=== PATIENT | female | born 2000 | race Caucasian/White ===

== ENCOUNTER 2021-08-09 10:59 | Emergency (ER) | payer OTHER, SELFPAY ==
--- NOTE | ~2021-08-09 | XR_ITS ---
EXAMINATION: XR chest 2V DATE: 08/09/2021 11:47 INDICATION: Shortness of breath and right-sided chest pain TECHNIQUE: PA and lateral views of the chest were obtained. COMPARISON: None FINDINGS: The lungs are clear with no focal airspace opacities, pulmonary edema, pleural effusion or pneumothor ax. The cardiomediastinal silhouette is normal. Visualized bones and soft tissues are unremarkable. IMPRESSION: 1. Normal chest radiograph. Reviewed, dictated and finalized at location A. IMPRESSION: 1. Normal chest radiograph.
[2021-08-09 11:10] VITALS: BP 116/64; PULSE 88; RESP 16; TEMP 37.2; O2SAT 100
--- NOTE | 2021-08-09 11:50 | ED.URI ---
HPI - URI/Sore Throat General Chief Complaint: Upper Respiratory Infection Stated Complaint: Congestion,Pain on right side of chest Source: patient, family, RN notes reviewed and old records reviewed Mode of arrival: ambulatory Limitations: no limitations History of Present Illness HPI Narrative: 21-year-old female who presents to [facility] accompanied by family member with complaints of feeling like she cannot take a deep breath in for the past 5days. She states that she feels like her nose is stuffed up but denies any drainage, cough, sore throat, fevers or chills. Patient reports that she has an area in her right upper chest that is sore especially when she tries to take a deep breath. Mother reports that daughter did perform some yard work at grandmothers house last weekend doing some repetitive motion with upper body.Patient has clear lung alexander with SAO2 100% on room air, no tachypnea noted. Related Data Allergies Allergy/AdvReac Type Severity Reaction Status Date / Time No Known Allergies Allergy Verified 08/09/21 11:10 Review of Systems Review of Systems: CONSTITUTIONAL: Denies fever, chills, or sweats. EYES: Denies visual changes, redness, or discharge. ENT: Denies rhinorrhea, congestion, sore throat, or otalgia, reports feels like nose is stuffy. CARDIOVASCULAR: positive for one spot in upper right chest area that has discomfort, no palpitations or edema RESPIRATORY: Denies cough or dyspnea.reports that she feels like she can't take deep breath in GASTROINTESTINAL: Denies abdominal pain, nausea, vomiting, or diarrhea. GENITOURINARY: Denies dysuria or hematuria. SKIN: Denies rash or itching. MUSCULOSKELETAL: Denies back pain, joint pain, or myalgia. NEUROLOGIC: Denies headache, numbness, or weakness. PSYCHIATRIC: Positive for history of anxiety or depression. All systems reviewed & are unremarkable except as noted in HPI and below PMFSH Past Medical History Medical History (Updated 08/10/21 @ 00:00 by [facility]) Anxiety and depression Surgical History Surgical History (Updated 08/10/21 @ 11:41 by Elizabeth Mills NP) No history of previous surgery Family History Family History (Updated 08/10/21 @ 11:42 by Elizabeth Mills NP) Other No significant family history Social History Social History (Updated 08/10/21 @ 11:41 by Elizabeth Mills NP) Smoking status: Never smoker Alcohol intake: current Alcohol use details: rare social Substance use: never Living arrangements: with family Gender identity (if verbalized by the patient): Female Comments At time of signature, agree with nursing past medical, surgical, social and family history. There is no relevant family history pertinent to the presenting complaint Exam Narrative: GENERAL: Well-appearing, well-nourished, thin and in no acute distress. HEAD: Normocephalic, atraumatic. EYES: PERRLA and EOMI. ENT: Nares clear, no rhinorrhea or epistaxis. Mucous membranes moist.TM's normal with good light reflex, throat pink with no lesions or exudates, no tonsil enlargement. NECK: Supple.no lymphadenopathy CHEST: Clear to auscultation. No respiratory distress.no tachypnea with SAO2 100%, reports area in right upper chest that hurts especially with deep breathing. HEART: Regular rate and rhythm. No murmur heard. Normal peripheral pulses. ABDOMEN: Soft, nontender, nondistended, normal active bowel sounds. EXTREMITIES: Normal range of motion. No edema. SKIN: Warm, dry, no rash. NEURO: No focal deficits. Alert and oriented x3. Course Vital Signs Vital signs: Vital Signs Temperature 37.2 C 08/09/21 11:10 Pulse Rate 88 08/09/21 11:10 Respiratory Rate 16 08/09/21 11:10 Blood Pressure 116/64 08/09/21 11:10 Pulse Oximetry 100 08/09/21 11:10 Temperature 37.2 C 08/09/21 11:10 Pulse Rate 88 08/09/21 11:10 Respiratory Rate 16 08/09/21 11:10 Blood Pressure 116/64 08/09/21 11:10 Pulse Oximetry 100
== END 2021-08-09 12:11 | disposition home or self-care (01) ==
PROVIDERS: Emergency Provider Registered Nurse
DX: M94.0 Chondrocostal junction syndrome [Tietze] (principal); R09.89 Other specified symptoms and signs involving the circulatory and respiratory systems
CPT/HCPCS: 71046; 99213; G0463